=== PATIENT | male | born 1985 | race African-American/Black ===

== ENCOUNTER 2017-05-15 11:23 | Emergency (ER) | payer SELFPAY ==
[2017-05-15] MEDS ORDERED: HYDROcodone/Acetaminophen 10/325 mg Tablet ONE (12:13)
== END 2017-05-15 13:39 | disposition home or self-care (01) ==
LOC: ERS 11:23
DX: L02.416 Cutaneous abscess of left lower limb (principal); I10 Essential (primary) hypertension; J45.909 Unspecified asthma, uncomplicated; F17.210 Nicotine dependence, cigarettes, uncomplicated
CPT/HCPCS: 10060

== ENCOUNTER 2020-09-14 02:43 | Emergency (ER) | payer SELFPAY ==
[2020-09-14] MEDS ORDERED: Fentanyl 100 MCG/2 ML VIAL ONE (02:58)
[2020-09-14 03:06] LABS: #Basophils 0.1 thou/uL (0.0-0.2); #Eosinphils 0.4 thou/uL (0.0-0.7); #Lymphocytes 2.1 thou/uL (1.20-3.40); #Monocytes 0.5 thou/uL (0.11-0.59); #Neutrophils 2.4 thou/uL (1.40-6.50); %Basophils 1.8 % (0.0-1.0); %Eosinophils 7.1 % (0.0-10.0); %Lymphocytes 37.4 % (21.0-51.0); %Monocytes 9.4 % (0.0-10.0); %Neutrophils 44.3 % (42.0-75.0); Mean Corpuscular Hemoglobin 29.1 pg (27.0-31.0); Mean Corpuscular Volume 83.3 fL (78.0-98.0); Mean Platelet Volume 7.7 fL (7.4-10.4); Platelet Count 183 thou/uL (130-400); RBC Distribution Width 14.3 % (11.5-14.5); Red Blood Cell (RBC) Count 4.82 mill/uL (4.70-6.10); White Blood Cell (WBC) Count 5.5 thou/uL (4.8-10.8)
[2020-09-14 03:08] LABS: INR-International Normal Ratio 0.9; PTT 27.5 sec (22.9-36.1); Prothrombin Time 12.8 sec (12.0-14.7)
[2020-09-14 03:17] LABS: ALT (SGPT) 36 U/L (8-55); AST (SGOT) 22 U/L (5-34); Albumin 4.4 g/dL (3.5-5.0); Alkaline Phosphatase 60 U/L (40-110); Anion Gap 15 mmol/L (10-20); BUN (Urea Nitrogen) 13 mg/dL (8.9-20.6); Bilirubin, Total 0.2 mg/dL (0.2-1.2); Calc. Creatinine Clearance 0 mL/min (70-130); Calcium 9.1 mg/dL (7.8-10.44); Carbon Dioxide 22 mmol/L (22-29); Chloride 105 mmol/L (98-107); Glucose 96 mg/dL (70-105); Potassium 3.6 mmol/L (3.5-5.1); Protein, Total 7.4 g/dL (6.0-8.3); Sodium 138 mmol/L (136-145)
[2020-09-14] MEDS ORDERED: Lidocaine 1% w/Epinephrine 1:100K 20 ML VIAL ONE (03:39)
[2020-09-14] MEDS ORDERED: Bacitracin 1 PK ONE (04:30)
[2020-09-14] MEDS ORDERED: Iopamidol-370 76% 500 ML 1 ML ONE (10:13)
== END 2020-09-14 06:07 | disposition home or self-care (01) ==
LOC: ERS 02:43
DX: S31.119A Laceration without foreign body of abdominal wall, unspecified quadrant without penetration into peritoneal cavity, initial encounter (principal); S21.119A Laceration without foreign body of unspecified front wall of thorax without penetration into thoracic cavity, initial encounter; J45.909 Unspecified asthma, uncomplicated; F17.210 Nicotine dependence, cigarettes, uncomplicated; W26.0XXA Contact with knife, initial encounter
CPT/HCPCS: 12002; 36415; 71045; 71260; 74177; 80053; 83605; 85025; 85610; 85730; 86850; 86900; 86901; 96374; 96375; 99292; G0390; J0690; J3010; Q9967

== ENCOUNTER 2020-09-21 14:06 | Emergency (ER) | payer SELFPAY ==
[2020-09-21] MEDS ORDERED: Bacitracin 1 PK ONE (15:02)
== END 2020-09-21 15:07 | disposition home or self-care (01) ==
LOC: ERS 14:06
DX: S31.119D Laceration without foreign body of abdominal wall, unspecified quadrant without penetration into peritoneal cavity, subsequent encounter (principal); S21.119D Laceration without foreign body of unspecified front wall of thorax without penetration into thoracic cavity, subsequent encounter; J45.909 Unspecified asthma, uncomplicated; F17.210 Nicotine dependence, cigarettes, uncomplicated
CPT/HCPCS: 99281